=== PATIENT | female | born 1955 | race Caucasian/White ===

== ENCOUNTER 2016-12-20 16:50 | Emergency (ER) | payer OTHER ==
--- NOTE | 2016-12-20 17:04 | UC ---
HPI Febrile Illness - HPI Summary HPI Summary: 61 year old female presents with complains of LLQ pain, diarrhea, and rectal bleeding. i will send her to the ER. - History of Current Complaint Time Seen by Provider: 12/20/16 17:03 - Allergy/Home Medications Allergies/Adverse Reactions: Allergies Allergy/AdvReac Type Severity Reaction Status Date / Time Amoxicillin Allergy Swelling Verified 12/20/16 17:08 Home Medications: Home Medications FLUoxetine CAP* [PROzac CAP*] 20 mg PO DAILY 12/20/16 [History Confirmed ] Pantoprazole Sodium 20 mg PO DAILY 12/20/16 [History Confirmed 12/20/16] Review of Systems Constitutional: Negative Skin: Negative Eyes: Negative ENT: Negative Respiratory: Negative Cardiovascular: Negative Gastrointestinal: Abdominal Pain, Vomiting, Diarrhea, Nausea Genitourinary: Negative Motor: Negative Neurovascular: Negative Musculoskeletal: Negative Neurological: Negative Psychological: Negative All Other Systems Reviewed And Are Negative: Yes Physical Exam Triage Information Reviewed: Yes Eye Exam: Normal ENT Exam: Normal Dental Exam: Normal Neck exam: Normal Neck: Positive: 1 Respiratory Exam: Normal Cardiovascular Exam: Normal Abdominal Exam: Normal Abdomen Description: Positive: Guarding, Other: - LLQ PAIN Musculoskeletal Exam: Normal Neurological Exam: Normal Psychological Exam: Normal Skin Exam: Normal Course/Dx - Diagnoses Clinic Provider Diagnoses: LLQ PAIN Discharge - Discharge Plan Condition: Stable Disposition: HOME Patient Education Materials: Acute Diarrhea (ED), Fever in Adults (ED) Referrals: Alannah Coyle MD [Primary Care Provider] -
[2016-12-20 17:08] VITALS: BP 116/72
== END 2016-12-20 17:24 | disposition home or self-care (01) ==
LOC: UCCORT 16:50
DX: R10.32 Left lower quadrant pain (principal); R19.7 Diarrhea, unspecified; K62.5 Hemorrhage of anus and rectum
CPT/HCPCS: 99202; G0463